=== PATIENT | male | born 1960 | race Caucasian/White ===

== ENCOUNTER 2018-05-11 05:25 | Day surgery (SDC) | payer BC, OTHER ==
[~2018-05-11] VITALS: Ht 177.8 cm; Wt 96.6 kg
--- NOTE | ~2018-05-11 | O ---
[facility] [place] [address] OPERATIVE REPORT Name: MINH MIRZA Room #: 150-7 [facility] M.R.#: [id number] Admission: 05/11/18 Attend Phys: Emilio Astudillo Discharge: Date of : 64 Report #: [id number] THIS REPORT FOR: //name// CC: Tremaine Henson DATE OF SERVICE: 05/11/2018 PREOPERATIVE DIAGNOSES: Left shoulder pain, massive rotator cuff tear, long head of the biceps tendon tear, impingement syndrome. POSTOPERATIVE DIAGNOSES: Left shoulder massive rotator cuff tear, complex labral tear, humeral head chondromalacia, subacromial bursitis. PROCEDURE: Left shoulder arthroscopy, massive rotator cuff repair involving subscapularis, supraspinatus, infraspinatus, and extensive debridement. SURGEON: Emilio Henson M.D. MEDICAL TECHNOLOGIST: Cristina Corrigan PA-C. ANESTHESIA: General with preoperative ultrasound-guided interscalene block. FLUIDS: 1100 mL crystalloid. ESTIMATED BLOOD LOSS: 5 mL. DESCRIPTION OF PROCEDURE: After proper identification of the patient and operative site in preoperative holding area, the operative site was signed by myself. Prophylactic antibiotics were given. The patient elected to receive an ultrasound-guided interscalene block after reviewing the risks, benefits, alternatives and potential complications with anesthesia. After a satisfactory block, the patient was brought back to the operative suite. After induction of satisfactory general endotracheal anesthesia, the patient was carefully positioned in the right lateral decubitus position. Plasencia bag and axillary roll were utilized to support the torso. The left shoulder was sterilely prepped and draped in the usual manner and placed within 10 pounds of balanced arthroscopic suspension. Posterior portal was established and was inflated with an arthroscopic pump set at 40 mmHg. The anterior superior portal was created using a spinal needle for localization. Examination of the glenohumeral joint revealed complex labral tearing of the anterior superior, posterior superior quadrants. A long head of the biceps tendon tear was noted and was complete. The frayed portion of the labrum was carefully debrided. There was a tear involving the upper portion of the subscapularis. Approximately 50-60% of the tendon appeared torn. An additional anterior inferior portal was created to aid in repair purposes. The glenohumeral joint demonstrated chondral thinning of [address] [address] OPERATIVE REPORT Name: MINH MIRZA Room #: 150-7 [facility] Ridge.#: [id number] Admission: 05/11/18 Attend Phys: Emilio Astudillo Discharge: Date of : 64 Report #: [id number] the more inferior humeral head where a complete loss of bone was noted, so grade 4 chondral changes were noted inferiorly. Glenoid surfaces otherwise appeared to be intact with minimal wear. There is also evidence of a complete supraspinatus and infraspinatus tear with retraction. At this point, lesser tuberosity was prepared with a combination of hand and motorized instrumentation. Two 4.75 mm SwiveLock anchors were utilized to repair this. The more inferior anchor was double loaded with #2 FiberWire. These were passed in a horizontal mattress fashion, tied with locking sliding knots. The upper border was then repaired with a FiberTape passed in a simple manner and the remaining subscapularis was intact. It was stable to probing. Some mild chondral thinning was also noted on the superior humeral head. Arthroscope was introduced in the subacromial space where a massive retracted tear was noted. Very thickened subacromial bursa was encountered and this was carefully resected. Care was taken to preserve as much of the rotator cuff as possible. Frayed portion was carefully debrided. Greater tuberosity was prepared with combination of hand and motorized instrumentation. There was some mild fraying on the coracoacromial arch, but no significant bony prominence was noted. Therefore, a bony decompression was not performed. At this point, a total of three anchors were placed off the articular margin of the humerus and greater tuberosity through a separate portal off the lateral border of the acromion. Sutures were passed in a horizontal mattress fashion, tied with locking sliding knots and backed up with alternating half hitches. Three of the suture pairs were crossed and placed more laterally based creating a double row construct. The repair was stable to probing. Tissue quality was just fair. Thinning of the tendon was noted. The patient will be immobilized in a sling and abduction pillow for 8 weeks postoperatively. No external rotation beyond neutral for the first 4 weeks. Qualified first aid instructor utilized throughout the entire procedure to aid in patient limb positioning, visualization with the arthroscope instrument, suture passage as well as closure and sling application. By: [id number] Emilio Henson MD /otilia
[~2018-05-11 05:25] MED LIST: ZOCOR20 MG PO
[2018-05-11 10:24] VITALS: BP 150/80
[2018-05-11 13:00] VITALS: BP 150/80
== END 2018-05-11 14:30 | disposition home or self-care (01) ==
LOC: TBA 05:25 → OR 05:25 → TBA 05:26 → OR 10:55
DX: M75.102 Unspecified rotator cuff tear or rupture of left shoulder, not specified as traumatic (principal); S43.492A Other sprain of left shoulder joint, initial encounter; S46.112A Strain of muscle, fascia and tendon of long head of biceps, left arm, initial encounter; M75.42 Impingement syndrome of left shoulder; M94.212 Chondromalacia, left shoulder; M75.52 Bursitis of left shoulder; E78.5 Hyperlipidemia, unspecified; F17.210 Nicotine dependence, cigarettes, uncomplicated; Z98.890 Other specified postprocedural states; Z79.899 Other long term (current) drug therapy; X58.XXXA Exposure to other specified factors, initial encounter; Y93.89 Activity, other specified; Y92.89 Other specified places as the place of occurrence of the external cause; Y99.8 Other external cause status
CPT/HCPCS: 50010; 50172; 50386; 50417; 50935; 51038; 51445; 51847; 53610; 54170; 55430; 56527